=== PATIENT | female | born 1980 | race Two or more races ===

== ENCOUNTER 2016-11-22 07:27 | Emergency (ER) | payer MEDICAID ==
[~2016-11-22] VITALS: Ht 165.1 cm; Wt 83.0 kg
[2016-11-22 07:39] VITALS: BP 139/72
[2016-11-22] MEDS ORDERED: SODIUM CHLORIDE 0.9% 1,000 ML IV ONE (10:24)
[2016-11-22 11:43] LABS: BASOPHILS % 0.6 % (0.0-2.0); EOSINOPHILS % 2.2 % (0.0-5.0); HEMATOCRIT. 37.7 % (36.0-48.0); HEMOGLOBIN. 12.7 g/dL (12.0-16.0); LYMPHOCYTES % 26.2 % (20.0-50.0); MEAN CORPUSCULAR HEMOGLOBIN 29.4 pg (28.0-32.0); MEAN CORPUSCULAR VOLUME 87.3 fL (81.0-99.0); MEAN PLATELET VOLUME 7.2 fl (7.4-10.4); MONOCYTES % 5.6 % (2.0-8.0); NEUTROPHILS % 65.4 % (40.0-76.0); PLATELET 312 x1000/uL (130-400); RED BLOOD CELL COUNT 4.31 mill/uL (4.2-5.4); RED CELL DISTRIBUTION WIDTH 14.1 % (11.6-14.6)
[2016-11-22 11:48] LABS: CHLORIDE 105 mEq/L (98-107)
[2016-11-22 11:58] LABS: HCG SCREEN POSITIVE
[2016-11-22 12:04] LABS: CARBON DIOXIDE 26 mEq/L (21-32)
[2016-11-22 12:10] LABS: B-HCG QUANTITATIVE 5958 mIU/mL (<3)
== END 2016-11-22 13:06 | disposition home or self-care (01) ==
LOC: ER 08:25
DX: O20.0 Threatened abortion (principal); Z3A.00 Weeks of gestation of pregnancy not specified; Z90.49 Acquired absence of other specified parts of digestive tract
CPT/HCPCS: 36415; 76801; 76817; 80048; 81025; 84702; 84703; 85025; 86850; 86900; 86901; 96360; 99285; J7030; Z7610